=== PATIENT | female | born 1955 | race Caucasian/White ===

== ENCOUNTER 2019-12-31 11:56 | Inpatient (IN) | payer OTHER ==
[~2019-12-31] VITALS: Ht 149.9 cm; Wt 88.5 kg
[2019-12-31 12:00] VITALS: BP 112/39
[2019-12-31 13:06] LABS: ABSOLUTE BASOPHILS 0.1 thou/uL (0.0-0.2); ABSOLUTE EOSINOPHILS 0.1 thou/uL (0.0-0.7); ABSOLUTE LYMPHOCYTES 0.8 thou/uL (0.8-5.3); ABSOLUTE MONOCYTES 0.6 thou/uL (0.0-1.2); ABSOLUTE NEUTROPHILS 5.2 thou/uL (1.6-8.1); BASOPHILS 1.1 %; EOSINOPHILS 1.3 %; HEMATOCRIT 32.7 % (37.0-47.0); HEMOGLOBIN 11.3 gm/dL (12.0-15.0); LYMPHOCYTES 11.7 %; MCH 29.3 pg (26.0-34.0); MCHC 34.5 g/dL (28.0-37.0); MONOCYTES 8.2 %; MPV 10.1 fl. (7.2-11.1); NUCLEATED RBCS 0 /100WBC; PLATELET COUNT* 135 thou/uL (150-400); POLYS 77.7 %; RBC 3.85 mil/uL (4.20-5.00); RDW-CV 14.3 % (10.5-14.5); WBC 6.7 thou/uL (4.0-11.0)
[2019-12-31 13:28] LABS: CALCIUM 8.6 mg/dL (8.5-10.1); CREATININE 2.7 mg/dL (0.6-1.3); POTASSIUM 3.9 mmol/L (3.5-5.1)
[2019-12-31 13:31] LABS: MAGNESIUM 1.7 mg/dL (1.8-2.4); TOTAL BILIRUBIN 0.3 mg/dL (<0.1-1.0); TOTAL PROTEIN 6.8 g/dL (6.4-8.2)
[2019-12-31 13:55] LABS: URINE BILIRUBIN NEGATIVE (Negative); URINE BLOOD NEGATIVE (Negative); URINE CLARITY CLEAR; URINE COLOR YELLOW; URINE GLUCOSE-RANDOM NEGATIVE (Negative); URINE KETONES NEGATIVE (Negative); URINE LEUKOCYTES-REFLEX TRACE (Negative); URINE NITRITE-REFLEX NEGATIVE (Negative); URINE PROTEIN NEGATIVE (Negative); URINE UROBILINOGEN 0.2 E.U./dl (0.2-1.0)
[2019-12-31] MEDS ORDERED: HYDROXYZINE PAM50 MG PO (14:02)
[2019-12-31] MEDS ORDERED: LASIX 40 MG TAB40 MG PO ×2 (14:02→15:44)
[2019-12-31] MEDS ORDERED: LISINOPRIL2.5 MG PO (14:03)
[2019-12-31] MEDS ORDERED: MAGNESIUM OXID250 MG PO (14:03)
[2019-12-31] MEDS ORDERED: NEPHRO-VITE TA0.8 MG PO (14:03)
[2019-12-31] MEDS ORDERED: LAMOTRIGINE250 MG PO (14:03)
[2019-12-31] MEDS ORDERED: INCRUSE ELLI62.5 MCG INH (14:03)
[2019-12-31] MEDS ORDERED: MIRALAX17 GM PO (14:04)
[2019-12-31] MEDS ORDERED: MILK OF MA400 MG/5 M PO (14:04)
[2019-12-31] MEDS ORDERED: STIMULANT LAXA1 EACH PO (14:04)
[2019-12-31] MEDS ORDERED: QUETIAPINE FUM200 M1 PO (14:05)
[2019-12-31] MEDS ORDERED: NIACIN500 MG PO (14:05)
[2019-12-31] MEDS ORDERED: BENZTROPINE MES1 MG PO (14:05)
[2019-12-31] MEDS ORDERED: IPRAT-ALBUT 0.5-3 ML INH (14:05)
[2019-12-31] MEDS ORDERED: CILOSTAZOL50 MG PO (14:06)
[2019-12-31] MEDS ORDERED: CARVEDILOL25 MG PO (14:06)
[2019-12-31] MEDS ORDERED: VITAMIN D21250 MC1 PO (14:07)
[2019-12-31] MEDS ORDERED: ADMELOG SO100 UNIT/1 SUBQ (14:07)
[2019-12-31] MEDS ORDERED: PLAVIX 75 MG TA75 MG PO (14:08)
[2019-12-31] MEDS ORDERED: LIPITOR 20 MG T20 M1 PO (14:08)
[2019-12-31] MEDS ORDERED: FAMOTIDINE 20 M20 MG PO (14:08)
[2019-12-31] MEDS ORDERED: CELEXA 20 MG TA20 MG PO (14:08)
[2019-12-31] MEDS ORDERED: BASAGLAR K100 UNIT/1 SUBQ (14:08)
[2019-12-31 14:09] LABS: CASTS None Seen /LPF (None Seen); CRYSTALS None Seen /LPF (None Seen); SQUAMOUS 0-3 Few /LPF (0-3); URINE RBC 0-2 Rare /HPF (0-2); URINE WBC-REFLEX 0-5 Rare /HPF (0-5)
[2019-12-31] MEDS ORDERED: FOLIC ACID1 MG PO (14:09)
[2019-12-31] MEDS ORDERED: FLONASE 0.05%50 MCG NARES (14:09)
[2019-12-31] MEDS ORDERED: GABAPENTIN100 MG PO (15:44)
[2019-12-31 15:46] VITALS: BP 115/70
[2019-12-31 16:05] VITALS: BP 147/60
[2019-12-31] MEDS ORDERED: SEROQUEL 100 M100 M1 PO (16:50)
[2019-12-31] MEDS ORDERED: DOK100 MG PO (16:51)
[2019-12-31] MEDS ORDERED: B12INJ IM (16:51)
[2019-12-31] MEDS ORDERED: GERI-TUSSI100 MG/5 M PO (16:52)
[2019-12-31] MEDS ORDERED: PROAIR RESPICL90 MCG INH (16:53)
[2019-12-31] MEDS ORDERED: TYLENOL325 MG PO (16:55)
[2019-12-31] MEDS ORDERED: SYMBICORT160 MCG/4. INH (16:56)
[2019-12-31] MEDS ORDERED: VICTOZA0.6 MG/0.1 SUBQ (16:56)
[2019-12-31 20:00] VITALS: BP 103/56
[2020-01-01 00:54] VITALS: BP 124/34
[2020-01-01 04:43] VITALS: BP 107/53
[2020-01-01 05:12] LABS: HEMATOCRIT 29.9 % (37.0-47.0); HEMOGLOBIN 10.2 gm/dL (12.0-15.0); MCH 28.8 pg (26.0-34.0); MCV 84.9 fL (80.0-100.0); RBC 3.52 mil/uL (4.20-5.00); RDW-CV 14.2 % (10.5-14.5); WBC 10.7 thou/uL (4.0-11.0)
[2020-01-01 05:40] LABS: CALCIUM 8.5 mg/dL (8.5-10.1); CREATININE 2.7 mg/dL (0.6-1.3); MAGNESIUM 1.6 mg/dL (1.8-2.4)
[2020-01-01 08:00] VITALS: BP 111/48
--- NOTE | 2020-01-01 09:32 | EKG ---
[place] [address] ELECTROCARDIOGRAM REPORT Name: FILIPPO HENDRICKS Room: [address] M.R.#: [id number] Admission: 12/31/19 Attend Phys: Irving Griffin, Discharge: Date of : 59 Date of Service: 12/31/19 1239 Report #: [id number] THIS REPORT FOR: //name// [facility] ED Test Date: 2019-12-31 Test Time: 12:39:29 Pat Name: FILIPPO HENDRICKS Department: Room: [address] Gender: F Office Sweeper: KIARA : 1955 Requested By: Silvia Alexandre Order Number: [id number] Rico MD: Jorge Magaña Measurements Intervals [place] Rate: 64 P: 53 ND: 201 QRS: 38 QRSD: 112 T: 130 QT: 446 QTc: 461 Interpretive Statements Sinus rhythm Borderline intraventricular conduction delay Abnormal T, consider ischemia, lateral leads No previous ECG available for comparison Electronically Signed On 01-01-2020 9:32:15 CDT by Jorge Magaña [email or web address] <ELECTRONICALLY SIGNED> By: Jorge Magaña MD, [facility] 01/01/20 0932 1239 1239 Jorge Magaña MD, [facility] /EPI
[2020-01-01 12:01] VITALS: BP 116/41
[2020-01-01 15:53] VITALS: BP 101/43
[2020-01-01 20:00] VITALS: BP 94/42
[2020-01-02 00:54] VITALS: BP 126/41
[2020-01-02 08:15] VITALS: BP 130/80
[2020-01-02 11:59] VITALS: BP 140/45
[2020-01-02 15:50] VITALS: BP 110/53
[2020-01-02 20:00] VITALS: BP 104/41
[2020-01-03] VITALS: BP 102/42
[2020-01-03 04:43] LABS: HEMATOCRIT 30.7 % (37.0-47.0); HEMOGLOBIN 10.5 gm/dL (12.0-15.0); MCH 29.3 pg (26.0-34.0); MCHC 34.1 g/dL (28.0-37.0); MPV 10.4 fl. (7.2-11.1); RBC 3.56 mil/uL (4.20-5.00); RDW-CV 14.7 % (10.5-14.5); WBC 6.3 thou/uL (4.0-11.0)
[2020-01-03 05:34] LABS: ALBUMIN 2.5 g/dL (3.4-5.0); CALCIUM 8.1 mg/dL (8.5-10.1); CREATININE 2.4 mg/dL (0.6-1.3); MAGNESIUM 1.8 mg/dL (1.8-2.4); POTASSIUM 4.1 mmol/L (3.5-5.1); TOTAL BILIRUBIN 0.4 mg/dL (<0.1-1.0); TOTAL PROTEIN 6.4 g/dL (6.4-8.2)
[2020-01-03 08:15] VITALS: BP 109/51
[2020-01-03 16:00] VITALS: BP 123/34
[2020-01-03 16:36] LABS: URINE BILIRUBIN NEGATIVE (Negative); URINE BLOOD 3+ (Negative); URINE CLARITY SL CLOUDY; URINE COLOR STRAW; URINE GLUCOSE-RANDOM NEGATIVE (Negative); URINE KETONES NEGATIVE (Negative); URINE LEUKOCYTES-REFLEX 2+ (Negative); URINE NITRITE-REFLEX NEGATIVE (Negative); URINE PROTEIN NEGATIVE (Negative); URINE SPECIFIC GRAVITY <= 1.005 (1.005-1.030); URINE UROBILINOGEN 0.2 E.U./dl (0.2-1.0)
[2020-01-03 16:47] LABS: SQUAMOUS 0-3 Few /LPF (0-3)
[2020-01-03 16:48] LABS: URINE WBC-REFLEX 0-5 Rare /HPF (0-5)
[2020-01-03 16:49] LABS: URINE RBC 3-10 Few /HPF (0-2)
[2020-01-03 16:50] LABS: CASTS None Seen /LPF (None Seen); CRYSTALS None Seen /LPF (None Seen); MUCUS 0-3 Light strn/LPF (None Seen)
[2020-01-03 20:00] VITALS: BP 128/48
[2020-01-04 00:34] VITALS: BP 111/53
[2020-01-04 04:18] LABS: HEMATOCRIT 28.6 % (37.0-47.0); HEMOGLOBIN 9.8 gm/dL (12.0-15.0); MCH 29.4 pg (26.0-34.0); MCHC 34.5 g/dL (28.0-37.0); MCV 85.3 fL (80.0-100.0); MPV 9.4 fl. (7.2-11.1); RBC 3.35 mil/uL (4.20-5.00); WBC 6.3 thou/uL (4.0-11.0)
[2020-01-04 04:33] LABS: CALCIUM 8.5 mg/dL (8.5-10.1); CREATININE 1.9 mg/dL (0.6-1.3); MAGNESIUM 1.8 mg/dL (1.8-2.4); POTASSIUM 4.4 mmol/L (3.5-5.1)
[2020-01-04 08:00] VITALS: BP 146/54
[2020-01-04 12:00] VITALS: BP 146/54
[2020-01-04 16:00] VITALS: BP 117/50
[2020-01-04 19:45] VITALS: BP 125/32
[2020-01-05 08:00] VITALS: BP 119/39
[2020-01-05 09:12] LABS: CALCIUM 8.4 mg/dL (8.5-10.1); CREATININE 1.8 mg/dL (0.6-1.3); POTASSIUM 4.2 mmol/L (3.5-5.1)
[2020-01-05 15:30] VITALS: BP 125/53
[2020-01-05 19:40] VITALS: BP 134/43
[2020-01-06 04:51] LABS: HEMATOCRIT 28.8 % (37.0-47.0); HEMOGLOBIN 9.7 gm/dL (12.0-15.0); MCH 29.1 pg (26.0-34.0); MCHC 33.6 g/dL (28.0-37.0); MCV 86.4 fL (80.0-100.0); MPV 9.1 fl. (7.2-11.1); RBC 3.34 mil/uL (4.20-5.00); RDW-CV 14.9 % (10.5-14.5); WBC 7.6 thou/uL (4.0-11.0)
[2020-01-06 05:14] LABS: CALCIUM 8.2 mg/dL (8.5-10.1); CREATININE 1.7 mg/dL (0.6-1.3); MAGNESIUM 1.8 mg/dL (1.8-2.4)
[2020-01-06 08:19] VITALS: BP 107/55
[2020-01-06 15:37] VITALS: BP 129/49
[2020-01-06 19:57] VITALS: BP 158/56
[2020-01-07 08:10] VITALS: BP 143/54
[2020-01-07 22:00] VITALS: BP 139/48
[2020-01-08 03:53] LABS: HEMATOCRIT 28.1 % (37.0-47.0); HEMOGLOBIN 9.6 gm/dL (12.0-15.0); MCH 29.6 pg (26.0-34.0); MCHC 34.3 g/dL (28.0-37.0); MCV 86.2 fL (80.0-100.0); MPV 8.2 fl. (7.2-11.1); RBC 3.26 mil/uL (4.20-5.00); WBC 7.9 thou/uL (4.0-11.0)
[2020-01-08 04:03] LABS: CALCIUM 8.2 mg/dL (8.5-10.1); CREATININE 1.6 mg/dL (0.6-1.3); MAGNESIUM 1.8 mg/dL (1.8-2.4); POTASSIUM 4.2 mmol/L (3.5-5.1)
[2020-01-08 08:00] VITALS: BP 153/48
[2020-01-08 13:41] VITALS: BP 153/48
[2020-01-08 16:00] VITALS: BP 143/53
[2020-01-08 16:28] VITALS: BP 153/48
[2020-01-08 19:36] VITALS: BP 149/63
[2020-01-09 04:06] LABS: ABSOLUTE BASOPHILS 0.1 thou/uL (0.0-0.2); ABSOLUTE EOSINOPHILS 0.3 thou/uL (0.0-0.7); ABSOLUTE LYMPHOCYTES 1.1 thou/uL (0.8-5.3); ABSOLUTE MONOCYTES 0.7 thou/uL (0.0-1.2); ABSOLUTE NEUTROPHILS 6.9 thou/uL (1.6-8.1); BASOPHILS 0.6 %; HEMATOCRIT 29.1 % (37.0-47.0); HEMOGLOBIN 10.1 gm/dL (12.0-15.0); LYMPHOCYTES 12.4 %; MCH 29.5 pg (26.0-34.0); MCHC 34.6 g/dL (28.0-37.0); MCV 85.3 fL (80.0-100.0); MONOCYTES 7.6 %; MPV 7.8 fl. (7.2-11.1); NUCLEATED RBCS 0 /100WBC; PLATELET COUNT* 207 thou/uL (150-400); POLYS 76.4 %; RBC 3.41 mil/uL (4.20-5.00); RDW-CV 14.9 % (10.5-14.5); WBC 9.1 thou/uL (4.0-11.0)
[2020-01-09 08:54] VITALS: BP 147/57
[2020-01-09 11:28] VITALS: BP 153/48
[2020-01-09 16:19] VITALS: BP 153/48
== END 2020-01-09 16:25 | disposition home or self-care (01) | DRG 177 ==
LOC: EDBD 11:56 → M.ERS 11:56 → M.2W 14:35 → M.TBA-ER 14:35 → M.2W 15:55 → M.ORTHSURG 01-01 09:33 → M.2W 01-01 09:33 → M.ORTHSURG 01-04 12:11
PROVIDERS: Internal Medicine; Personal Emergency Response Attendant; ADMIT Internal Medicine; ATTEND Internal Medicine
DX: J15.6 Pneumonia due to other Gram-negative bacteria (principal); G92 Toxic encephalopathy; N17.0 Acute kidney failure with tubular necrosis; E22.2 Syndrome of inappropriate secretion of antidiuretic hormone; E44.1 Mild protein-calorie malnutrition; I13.0 Hypertensive heart and chronic kidney disease with heart failure and stage 1 through stage 4 chronic kidney disease, or unspecified chronic kidney disease; N18.3 Chronic kidney disease, stage 3 (moderate); E11.22 Type 2 diabetes mellitus with diabetic chronic kidney disease; R33.9 Retention of urine, unspecified; E66.9 Obesity, unspecified; F25.0 Schizoaffective disorder, bipolar type; E11.65 Type 2 diabetes mellitus with hyperglycemia; F17.210 Nicotine dependence, cigarettes, uncomplicated; I95.1 Orthostatic hypotension; E11.43 Type 2 diabetes mellitus with diabetic autonomic (poly)neuropathy; F03.90 Unspecified dementia, unspecified severity, without behavioral disturbance, psychotic disturbance, mood disturbance, and anxiety; T50.995A Adverse effect of other drugs, medicaments and biological substances, initial encounter; I50.9 Heart failure, unspecified; G47.00 Insomnia, unspecified; Z20.828 Contact with and (suspected) exposure to other viral communicable diseases; Z68.39 Body mass index [BMI] 39.0-39.9, adult; Y92.89 Other specified places as the place of occurrence of the external cause; Z79.4 Long term (current) use of insulin; Z79.899 Other long term (current) drug therapy; Z72.89 Other problems related to lifestyle